=== PATIENT | male | born 1970 ===

== ENCOUNTER → 2017-12-27 | Outpatient (CLI) | payer OTHER ==
[~2017-12-27] MED LIST: BUSPAR DIVIDOSE15 MG PO; NEURONTIN600 MG/TAB PO; PROTONIX 40MG T40 MG PO; PROZASIN PO; [UNRECOGNIZED DRUG - OTHER] PO
== END ==
LOC: COL.RAD 12-25 12:13
DX: K21.9 Gastro-esophageal reflux disease without esophagitis (principal); R19.7 Diarrhea, unspecified; R11.10 Vomiting, unspecified
CPT/HCPCS: A9541